=== PATIENT | female | born 1945 | race Caucasian/White ===

== ENCOUNTER 2024-04-12 14:45 | Outpatient (AMB) | payer OTHER, SELFPAY ==
[2024-04-12 14:49] VITALS: BP 108/58; PULSE 64; O2SAT 97; BMI 17.8
--- NOTE | 2024-04-12 14:49 | MHC.PC.OV ---
Vital Signs 04/12/24 14:49 Height 5 ft 3 in Weight 100 lb 8 oz BMI 17.8 BP 108/58 L Blood Pressure Location Lt brachial Position Sitting Pulse 64 Pulse Source Pulse Oximeter Pulse Oximetry (%) 97 Oxygen Delivery Method Room Air Intake Visit Reasons: est care Intake Note: Patient is here as a new patient looking to establish care. Allergies No Known Allergies Allergy (Verified 04/12/24 14:52) Medication List - Last Reconciled 04/12/24 by Augie Navarro MD No Known Home Meds Tobacco use date assessed: 04/12/24 Fall risk assessment: No Falls in past year Last assessed Fall Risk: 04/12/24 Dental Screening Dental Screen Date: 04/12/24 Did you have a dental visit in the last 12 months?: Yes Did you have a dental problem in the last 6 months where you did not have access to dental care?: No Was dental information given to patient?: Patient has dentist HPI est care HPI Details New Patient? ?? Prior PCP:?None Last office visit/CPE:? [place]oved to States from [place] & [place]. 2 yrs ago Acute issue(s):? Est care Colonoscopy about 8 years ago. Mammogram about 2 years ago. Results were normal per pt. She continues to eat a healthy diet. Pt tries to walk daily for exercise. ?? PMHx:? Hepatitis age 15. Uterine polyps SurgHx:? Uterine polpectmy/curretage. FamHx: Mom: DM Sisters: DM SocHx:? nonsmoker, EtOH 1 glass occassionally/rarely PFSH Medical History (Updated 04/12/24 @ 15:23 by Kyle Gunderson) Uterine polyp Hepatitis Cataract Family History (Updated 04/12/24 @ 15:01 by Alaina Yo CMA) Mother Diabetes Maternal Aunt Diabetes Father FH: heart attack Social History (Updated 04/12/24 @ 15:05 by Alaina Yo CMA) Household Members: Spouse Housing: Condominium Are you a primary rn wound care to a significant other at home: No Do you presently have visiting nurse or other home services: No 75 years or older and lives alone: No Alcohol intake: current Alcohol intake frequency: holidays/special occasions only Alcohol type: wine Patient Tobacco Use Status: Never used Tobacco e-Cigarette/Vaping Use: Never Used service: No Current occupational status: employed Current occupation: [employer] working Cognitive needs: No Hearing needs: No Vision needs: No Questionnaire PHQ-9 Over the last 2 weeks, how often have you been bothered by any of the following problems? 1. Little interest or pleasure in doing things: not at all 2. Feeling down, depressed, or hopeless: not at all 3. Trouble falling or staying asleep, or sleeping too much: not at all 4. Feeling tired or having little energy: not at all 5. Poor appetite or overeating: not at all 6. Feeling bad about yourself - or that you are a failure or have let yourself or your family down: not at all 7. Trouble concentrating on things, such as reading the newspaper or watching television: not at all 8. Moving or speaking so slowly that other people could have noticed. Or the opposite - being so fidgety or restless that you have been moving around a lot more than usual: not at all 9. Thoughts that you would be better off or of hurting yourself in some way: not at all Total score: 0 Depression Screening Interpretation: Negative Depression Screening Done: Yes Source: Developed by Drs. Efrem Corey, Carrie Dye, Kelvin Marino and colleagues, with an educational paco from [employer]. Thrive Questionnaire Date Thrive assessed: 04/12/24 I am a: Patient What is your living situation today?: I have a steady place to live Within the past 12 months, did the food you bought not last and you didn't have the money to get more?: Never true Within the past 12 months, did you worry whether your food would run out before you got money to buy more?: Never true Do you have trouble paying for medicines?: No Do you have trouble getting transportation to medical appointments?: No Do you have trouble paying your heating and electricity bill?: No Do you have trouble taking care of your child, family member or friend?: No Do you have trouble with day-to-day activities such as bathing, preparing meals, shopping, managing finances, etc.?: No Are you currently unemployed and looking for a job?: No Are you interested in more education?: No THRIVE Score: 0 AUDIT C Alcohol Use Questionnaire (AUDIT-C) 1. How often do you have a drink containing alcohol?: Monthly or less 2. How many drinks containing alcohol do you have on a typical day when you are drinking?: 1 or 2 3. How often do you have six or more drinks on one occasion?: Never Total Score: 1 BRENT-7 AMB Questionnaire BRENT-7 Date BRENT - 7 assessed: 04/12/24 Feeling nervous, anxious, or on edge: 0 = Not at all Not being able to stop or control worryin = Not at all Worrying too much about different things: 0 = Not at all Trouble relaxin = Not at all Being so restless that it is hard to sit still: 0 = Not at all Becoming easily annoyed or irritable: 0 = Not at all Feeling afraid as if something awful might happen: 0 = Not at all Total BRENT-7 score (0-4 normal; 5-9 mild; 10-14 moderate; 15-21 severe): 0 Source: Developed by Drs. Efrem Corey, Carrie Dye, Kelvin Marino and colleagues, with an educational paco from [employer]. BRENT-7 Assessment Billing BRENT-7 Assessment Tool: BRENT-7 Assessment 14256 Review of Systems Const Denies chills, Denies fatigue, Denies fever(s), Denies headache(s) and Denies weakness Eyes Denies change in vision ENT Denies dizziness, Denies headache(s), Denies hearing loss, Denies nasal congestion, Denies sinus pain, Denies sinus pressure and Denies sore throat Card Denies chest pain, Denies lightheadedness, Denies dyspnea and Denies other (palpitations) Resp Denies cough, Denies dyspnea and Denies wheezing GI Denies abdominal pain, Denies melena, Denies hematochezia, Denies change in bowel habits, Denies dyspepsia and Denies nausea Denies hematuria and Denies dysuria Musc Denies abnormal gait, Denies myalgias, Denies arthralgias, Denies numbness and Denies tingling Skin/Breast Denies rash, Denies unusual bruising and Denies wounds Neuro Denies abnormal gait, Denies dizziness, Denies headache(s), Denies memory loss, Denies numbness, Denies Sensory deficit (Neuro), Denies tingling and Denies weakness Psych Denies anxiety, Denies depression and Denies memory loss Endo Denies cold intolerance, Denies fatigue, Denies heat intolerance, Denies polydipsia and Denies polyuria Juvenal/Lymph Denies easy bleeding and Denies easy bruising Aller/Immun Denies wheezing Physical exam (Primary Care) Vital Signs: Last Vital Signs Pulse 64 04/12/24 14:49 BP 108/58 L 04/12/24 14:49 Pulse Ox 97 04/12/24 14:49 Oxygen Delivery Method Room Air 04/12/24 14:49 BMI result Body Mass Index 17.8 Tobacco/Smoking Status: Tobacco use Status Tobacco use date assessed 04/12/24 04/12/24 15:13 Patient Tobacco Use Status Never used Tobacco 04/12/24 15:13 e-Cigarette/Vaping Use Never Used 04/12/24 15:13 PHQ-9: PHQ-9 Score PHQ-9: Total score 0 04/12/24 15:13 Depression Screening Interpretation: Negative Thrive Assessment: Date of Thrive Assessment Date Thrive assessed 04/12/24 04/12/24 15:13 Const General: no acute distress, well developed, alert and awake Nutritional Appearance: well nourished Orientation/consciousness: patient oriented x3 HENMT Head: Yes normocephalic and Yes atraumatic Ears: hearing grossly normal bilaterally and TM's normal bilaterally General nose exam: Normal external nose present and Normal nares present Mouth: Normal oral and palatal mucosa present and moist mucous membranes Teeth and gingiva: dentition normal Throat: Yes posterior oropharynx normal Eyes General: appearance normal, both eyes and all related structures Pupils: Equal, round and reactive pupils present and Pupil accommodation reflex normal EOM: EOMs intact bilaterally Neck Neck: Yes normal visual inspection, Yes no lymphadenopathy and Yes trachea midline Thyroid: Thyroid normal Carotids: no bruits Lymphatic: no lymphadenopathy noted Chest Chest palpation & inspection: normal inspection of the chest Resp Effort & Inspection: normal respiratory effort Auscultation: clear to auscultation bilaterally Cardio Rate: regular rate Rhythm: regular rhythm Heart sounds: S1 normal heart sound present, S2 normal heart sound present, no gallops, no murmurs and no rubs Bruits: no abdominal aortic bruits and no carotid bruits GI Palpation (GI): No Abdominal aortic bruit present, Soft to palpation, nontender, No hepatosplenomegaly present and No Rebound tenderness present Auscultation: normal bowel sounds General: Yes no CVA tenderness Back/Spine/Pelvis Back: no CVA tenderness Cervical Spine: cervical ROM normal and No Cervical spine tenderness Thoracic/Lumbar Spine: thoraco-lumbar ROM normal, No pain with thoraco-lumbar ROM, No thoracic spinal tenderness and No lumbar spinal tenderness Skin Lesions: no lesions Rashes: no rashes Trauma: no lacerations or abrasions Wounds: no wounds Nails: normal Neuro General: patient oriented x3 Cranial nerves: Yes Equal, round and reactive pupils present Cognition (Neuro): normal cognition Gait exam (Neuro): Normal gait present Motor exam (neuro): 5/5 motor strength present throughout Sensory Exam: No Sensory deficit (Neuro) Deep tendon reflexes (DTR's): Right patellar reflex intensity grade: 2+ and Left patellar reflex intensity grade: 2+ Extrem General: Yes normal to inspection and No edema Psych Appearance: grossly normal Affect: normal affect Attitude: cooperative Thought process: Normal thought process present Assessment and Plan Assessment & Plan (1) History of hepatitis: Code(s): Z86.19 - Personal history of other infectious and parasitic diseases Plan: Patient?says?this?was?evaluated?by?physicians?in?[place]?and?they?found?no?evidence?of?current?hepatitis?infection Check?labs (2) Breast cancer screening by mammogram: Code(s): Z12.31 - Encounter for screening mammogram for malignant neoplasm of breast Plan: Mammogram?1-2?years?ago?and?she?would?like?to?wait?until?next?year?for?her?next?mammogram We?can?readdress?next?year (3) Screening for colon cancer: Code(s): Z12.11 - Encounter for screening for malignant neoplasm of colon Plan: Colonoscopy?about?8?years?ago She?will?be?due?to?repeat?colonoscopy?in?about?2?years; age?81?and?this?would?likely?be?her?last?colonoscopy Will?readdress?at?the?appropriate?time (4) Adult general medical exam: Code(s): Z00.00 - Encounter for general adult medical examination without abnormal findings Plan: 79-year-old?woman?presents?as?new?patient?to?establish?care?and?for?extended?exam Encouraged?ongoing?healthy?diet?with?active?lifestyle?and?plenty?of?exercise Orders: Orders Complete Blood Count Auto Diff Today Z00.00 - Encounter for general adult medical examination without abnormal findings Comprehensive [place]. Panel Fast Today Z00.00 - Encounter for general adult medical examination without abnormal findings Microalbumin, Random (w Creat) Today I10 - Essential (primary) hypertension TSH reflex Free T4 Today Z00.00 - Encounter for general adult medical examination without abnormal findings UA and rflx microscopic Today Z00.00 - Encounter for general adult medical examination without abnormal findings Vitamin B12 and Folate Today E53.8 - Deficiency of other specified B group vitamins Lipid Panel Today Z00.00 - Encounter for general adult medical examination without abnormal findings Vitamin D 25-OH Total Today E55.9 - Vitamin D deficiency, unspecified Coding Level of Care Code New Pt Level 3 (34210) New Pt Prev Care >65yr (35216) Diagnoses History of hepatitis Z86.19 Breast cancer screening by mammogram Z12.31 Screening for colon cancer Z12.11 Adult general medical exam Z00.00 Additional Codes BRENT-7 Assessment Billing - BRENT-7 Assessment Tool: BRENT-7 Assessment 58566 ([id number])
== END 2024-04-12 15:43 | disposition home or self-care (01) ==
PROVIDERS: Visit Provider Family Medicine
DX: Z00.00 Encounter for general adult medical examination without abnormal findings (principal); Z86.19 Personal history of other infectious and parasitic diseases; Z12.31 Encounter for screening mammogram for malignant neoplasm of breast; Z12.11 Encounter for screening for malignant neoplasm of colon
CPT/HCPCS: 99387

== ENCOUNTER → 2024-06-20 14:04 | Outpatient (AMB) | payer OTHER, SELFPAY ==
--- NOTE | 2024-06-20 13:54 | MHC.PC.OV ---
Intake Visit Reasons: fu labs in diag tab in clinical chart from [facility] Note: foolow up on labs . Allergies No Known Allergies Allergy (Verified 06/20/24 13:55) Tobacco use date assessed: 04/12/24 Dental Screening Dental Screen Date: 04/12/24 HPI fu labs in diag tab in clinical chart from [facility] Details Telemedicine?encounter?to?follow-up?CPE-labs. Reviewed?labs?with?patient LDL?cholesterol?is?112 Vitamin-D?level?is?18 Her?other?labs?are?within?normal?range Patient?feels?well.??No?new?complaint PFSH Medical History (Updated 06/20/24 @ 14:02 by Augie Navarro MD) Uterine polyp Hepatitis Cataract Family History (Updated 04/12/24 @ 15:01 by Alaina Yo CMA) Mother Diabetes Maternal Aunt Diabetes Father FH: heart attack Social History (Updated 04/12/24 @ 15:05 by Alaina Yo CMA) Household Members: [facility] Are you a primary prompt care rn to a significant other at home: No Do you presently have visiting nurse or other home services: No 75 years or older and lives alone: No Alcohol intake: current Alcohol intake frequency: holidays/special occasions only Alcohol type: wine Patient Tobacco Use Status: Never used Tobacco e-Cigarette/Vaping Use: Never Used service: No Current occupational status: employed 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 Efrem Corey, Carrie Dye, Kelvin Marino and colleagues, with an educational paco from [employer]. Review of Systems Const Denies chills, Denies fatigue, Denies fever(s), Denies headache(s) and Denies weakness ENT Denies dizziness and Denies headache(s) Card Denies chest pain, Denies lightheadedness, Denies dyspnea and Denies other (Palpitations) Resp Denies cough, Denies dyspnea, Denies wheezing and Denies other ( shortness of breath) Musc Denies numbness and Denies tingling Neuro Denies dizziness, Denies headache(s), Denies numbness, Denies tingling, Denies paresthesias and Denies weakness Psych Denies anxiety and Denies depression Endo Denies fatigue Aller/Immun Denies wheezing Physical exam (Primary Care) Tobacco/Smoking Status: Tobacco use Status Tobacco use date assessed 04/12/24 06/20/24 13:55 Patient Tobacco Use Status Never used Tobacco 06/20/24 13:55 e-Cigarette/Vaping Use Never Used 06/20/24 13:55 Thrive Assessment: Date of Thrive Assessment Date Thrive assessed 04/12/24 06/20/24 13:55 Telehealth Telehealth Telehealth Platform: Telephone Location of provider rendering services: practice address Location of patient: address on file Patient Identification confirmed using: Name, : Yes Telehealth method: voice only Patient verbally consented to treatment: Yes Patient verbally consented to billing insurance company: Yes Patient informed of any privacy concerns related to visit: Yes Minutes spent on Phone/Video with Pt.: 5 Assessment and Plan Assessment & Plan (1) Elevated LDL cholesterol level: Code(s): E78.00 - Pure hypercholesterolemia, unspecified Plan: Mildly?elevated?LDL?cholesterol?however?her?HDL?is?over?70; good?HDL?ratio Encouraged?a?diet?low?in?saturated?fats?and?cholesterol (2) Vitamin D deficiency: Code(s): E55.9 - Vitamin D deficiency, unspecified Plan: Vitamin-D?level?is?low?and?I?sent?a?script?for?vitamin-D?supplement?which?she?can?begin Orders: Orders Comprehensive [place]. Panel Fast Today Z00.00 - Encounter for general adult medical examination without abnormal findings Complete Blood Count Auto Diff Today Z00.00 - Encounter for general adult medical examination without abnormal findings Lipid Panel Today Z00.00 - Encounter for general adult medical examination without abnormal findings Microalbumin, Random (w Creat) Today I10 - Essential (primary) hypertension TSH reflex Free T4 Today Z00.00 - Encounter for general adult medical examination without abnormal findings UA and rflx microscopic Today Z00.00 - Encounter for general adult medical examination without abnormal findings Vitamin D 25-OH Total Today E55.9 - Vitamin D deficiency, unspecified Medications: New cholecalciferol (vitamin D3) 125 mcg PO DAILY 30 days 30 caps 3RF Coding Level of Care Code Tele Est Pt Level 2 (49942) Diagnoses Elevated LDL cholesterol level E78.00 Vitamin D deficiency E55.9
== END ==
LOC: HO.HMGFM 14:04
PROVIDERS: Visit Provider Family Medicine
DX: E78.00 Pure hypercholesterolemia, unspecified (principal); E55.9 Vitamin D deficiency, unspecified
CPT/HCPCS: 99441

== ENCOUNTER 2025-04-17 07:45 | Outpatient (REF) | payer OTHER, SELFPAY ==
[2025-04-17 11:35] LABS: Appearance Urine Clear; Color Urine Yellow; Glucose Urine UA Negative (Negative); Leukocyte Esterase Urine Trace (Negative); Nitrite Urine Negative (Negative); Specific Gravity - Urine 1.015 (1.005-1.025); UMIC TRIGGER UA YES; Urine Blood Negative (Negative); Urine Ketones Negative (Negative); Urine Protein Negative (Neg-Trace)
[2025-04-17 11:39] LABS: Bacteria Urine None Seen (None Seen); Hyaline Casts Urine 0-2 /LPF (0-2); RBC Urine 0-2 /HPF (0-2); Squamous Epithelial Cell Urine 0-2 /HPF (0-2); WBC Urine 0-5 /HPF (0-5)
[2025-04-17 11:51] LABS: MANUAL DIFF FLAG NO
[2025-04-17 12:01] LABS: Basophils Absolute Auto 0.1 X10*3/uL (0.0-0.2); Basophils Percent Auto 1.4 % (0-2); Eosinophils Absolute Auto 0.1 X10*3/uL (0.0-0.4); Hematocrit 38.4 % (37.0-47.0); Hemoglobin 12.7 g/dl (12.0-16.0); Imm Gran Abs Auto 0.02 X10*3/uL (0.00-0.03); Imm Gran Pct Auto 0.3 % (0.0-0.4); Lymphocytes Absolute Auto 1.8 X10*3/uL (1.2-4.9); Lymphocytes Percent Auto 31.1 % (20-40); Mean Corpuscular HGB Conc 33.1 g/dl (31.0-35.0); Mean Corpuscular Hemoglobin 31.2 pg (27.0-33.0); Mean Corpuscular Volume 94.3 fL (80.0-98.0); Mean Platelet Volume 10.3 fL (9.4-12.3); Monocytes Absolute Auto 0.8 X10*3/uL (0.1-1.2); Monocytes Percent Auto 13.6 % (2-11); Neutrophils Percent Auto 51.6 % (45-73); Platelet Count 274 X10*3/uL (160-400); Red Blood Count 4.07 X10*6/uL (4.20-5.50); Red Cell Distribution Width 14.4 % (11.0-16.0); White Blood Count 5.9 X10*3/uL (4.8-10.8)
[2025-04-17 12:30] LABS: Alanine Aminotransferase 17 U/L (0-31); Alkaline Phosphatase 34 U/L (39-117); Anion Gap 10 (12-20); Aspartate Amino Transferase 30 U/L (5-31); Bilirubin Total 0.6 mg/dL (0.0-1.0); Blood Urea Nitrogen 14 mg/dL (9-16); Calcium 9.5 mg/dL (8.4-10.2); Carbon Dioxide 28 mmol/L (22-29); Chloride 107 mmol/L (96-108); Cholesterol 197 mg/dL (<200); Estimated Glomerular Filt Rate > 60; Glucose Fasting 77 mg/dL (60-99); HDL Cholesterol 62 mg/dL (>40); LDL Cholesterol Calculated 121 mg/dL (<100); Potassium 4.1 mmol/L (3.3-5.1); Sodium 141 mmol/L (135-145); Total Protein 7.5 g/dL (6.5-8.0); Triglycerides 71 mg/dL (<150)
[2025-04-17 12:32] LABS: Creatinine Urine 73.78 mg/dL; Microalbumin Urine < 5.0 mg/L
[2025-04-17 12:44] LABS: TSH reflex Free T4 1.97 uIU/mL (0.32-4.0); Vitamin D 25-OH Total 82.8 ng/mL (>30)
== END 2025-04-17 07:46 | disposition home or self-care (01) ==
LOC: HO.WFDLDS 07:45
PROVIDERS: Visit Provider Family Medicine
DX: D48.5 Neoplasm of uncertain behavior of skin (principal); Z00.00 Encounter for general adult medical examination without abnormal findings; I10 Essential (primary) hypertension; E55.9 Vitamin D deficiency, unspecified
CPT/HCPCS: 36415; 80053; 80061; 81001; 82043; 82306; 82570; 84443; 85025; 96127

== ENCOUNTER 2025-04-17 11:17 | Outpatient (AMB) | payer OTHER, SELFPAY ==
--- NOTE | 2025-04-17 11:40 | MHC.PC.OV ---
Vital Signs 04/17/25 11:44 Height 5 ft 1 in Weight 101 lb 6 oz BMI 19.2 BP 110/60 Blood Pressure Location Rt brachial Position Sitting Respiration 14 Pulse 68 Pulse Source Pulse Oximeter Temp 97.1 F Temp Source Oral Pulse Oximetry (%) 98 Oxygen Delivery Method Room Air Intake Visit Reasons: Growth on Leg Intake Note: patient is being seen for growth on leg patient had a black spot on buttock right side but went away patient was worry it might be melnoma but want it to be check. Allergies No Known Allergies Allergy (Verified 04/17/25 11:42) Tobacco use date assessed: 04/17/25 Fall risk assessment: No Falls in past year Dental Screening Dental Screen Date: 04/12/24 Did you have a dental visit in the last 12 months?: Yes Did you have a dental problem in the last 6 months where you did not have access to dental care?: No Was dental information given to patient?: No HPI Growth on Leg HPI Details 80 y/o female presents today with complaints of growth on her leg. Pt also reports black spot on her buttock R side. Labs drawn 04/17/25. Reviewed labs with pt. Most labs still pending. [facility] Medical History (Updated 04/17/25 @ 12:22 by Kyle Gunderson) Uterine polyp Hepatitis Cataract Family History (Updated 04/12/24 @ 15:01 by Alaina Yo [facility]) Mother Diabetes Maternal Aunt Diabetes Father FH: heart attack Social History (Updated 04/12/24 @ 15:05 by Alaina Yo [facility]) Household Members: [facility] Are you a primary care coordinator to a significant other at home: No Do you presently have visiting nurse or other home services: No 75 years or older and lives alone: No Alcohol intake: current Alcohol intake frequency: holidays/special occasions only Alcohol type: wine Patient Tobacco Use Status: Never used Tobacco e-Cigarette/Vaping Use: Never Used service: No Current occupational status: employed 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 1. Little interest or pleasure in doing things: not at all 2. Feeling down, depressed, or hopeless: not at all 3. Trouble falling or staying asleep, or sleeping too much: not at all 4. Feeling tired or having little energy: not at all 5. Poor appetite or overeating: not at all 6. Feeling bad about yourself - or that you are a failure or have let yourself or your family down: not at all 7. Trouble concentrating on things, such as reading the newspaper or watching television: not at all 8. Moving or speaking so slowly that other people could have noticed. Or the opposite - being so fidgety or restless that you have been moving around a lot more than usual: not at all 9. Thoughts that you would be better off or of hurting yourself in some way: not at all Total score: 0 Depression Screening Interpretation: Negative Depression Screening Done: Yes [id number] - PHQ-9 Billing: Yes Source: Developed by Drs. Efrem Corey, Carrie Dye, Kelvin Marino and colleagues, with an educational paco from [employer]. Thrive Questionnaire Date Thrive assessed: 04/17/25 I am a: Patient What is your living situation today?: I have a steady place to live Within the past 12 months, did the food you bought not last and you didn't have the money to get more?: Never true Within the past 12 months, did you worry whether your food would run out before you got money to buy more?: Never true Do you have trouble paying for medicines?: No Do you have trouble getting transportation to medical appointments?: No Do you have trouble paying your heating and electricity bill?: No Do you have trouble taking care of your child, family member or friend?: No Do you have trouble with day-to-day activities such as bathing, preparing meals, shopping, managing finances, etc.?: No Are you currently unemployed and looking for a job?: No Are you interested in more education?: No Please select the resources that you would like help with: None Currently or been in a relationship where the following occur: No concerns reported THRIVE Score: 0 AUDIT C Alcohol Use Questionnaire (AUDIT-C) 1. How often do you have a drink containing alcohol?: Never Total Score: 0 BRENT-7 AMB Questionnaire BRENT-7 Date BRENT - 7 assessed: 04/17/25 Feeling nervous, anxious, or on edge: 0 = Not at all Not being able to stop or control worryin = Not at all Worrying too much about different things: 0 = Not at all Trouble relaxin = Not at all Being so restless that it is hard to sit still: 0 = Not at all Becoming easily annoyed or irritable: 0 = Not at all Feeling afraid as if something awful might happen: 0 = Not at all Total BRENT-7 score (0-4 normal; 5-9 mild; 10-14 moderate; 15-21 severe): 0 Source: Developed by Drs. Efrem Corey, Carrie Dye, Kelvin Marino and colleagues, with an educational paco from [employer]. BRENT-7 Assessment Billing BRENT-7 Assessment Tool: BRENT-7 Assessment 46433 Review of Systems Const Denies chills, Denies fatigue, Denies fever(s), Denies headache(s) and Denies weakness ENT Denies dizziness and Denies headache(s) Card Denies dyspnea Resp Denies cough, Denies dyspnea, Denies wheezing and Denies other (shortness of breath) Musc Denies numbness and Denies tingling Neuro Denies dizziness, Denies headache(s), Denies numbness, Denies tingling and Denies weakness Psych Denies anxiety and Denies depression Endo Denies fatigue Aller/Immun Denies wheezing Physical exam (Primary Care) Vital Signs: Last Vital Signs Temp 97.1 F 04/17/25 11:44 Pulse 68 04/17/25 11:44 Resp 14 04/17/25 11:44 BP 110/60 04/17/25 11:44 Pulse Ox 98 04/17/25 11:44 Oxygen Delivery Method Room Air 04/17/25 11:44 BMI result Body Mass Index 19.2 Tobacco/Smoking Status: Tobacco use Status Tobacco use date assessed 04/17/25 04/17/25 11:49 Patient Tobacco Use Status Never used Tobacco 04/17/25 11:42 e-Cigarette/Vaping Use Never Used 04/17/25 11:42 PHQ-9: PHQ-9 Score PHQ-9: Total score 0 04/17/25 11:49 Depression Screening Interpretation: Negative Thrive Assessment: Date of Thrive Assessment Date Thrive assessed 04/17/25 04/17/25 11:49 Currently or been in a relationship where the following occur: No concerns reported Const General: well developed; No acute distress Nutritional Appearance: well nourished Orientation/consciousness: patient oriented x3 [facility] Head: Yes normocephalic and Yes atraumatic Eyes General: appearance normal, both eyes and all related structures Pupils: Equal, round and reactive pupils present EOM: EOMs intact bilaterally Resp Effort & Inspection: normal respiratory effort Skin Other: 1 cm fleshy appearing growth at R lateral hip/buttock with some scale and excoriation Neuro General: patient oriented x3 and gait normal Cranial nerves: Yes Equal, round and reactive pupils present Psych Affect: normal affect Coding Level of Care Code Est Pt Level 3 (64267) Diagnoses Neoplasm of uncertain behavior of skin D48.5 Additional Codes BRENT-7 Assessment Billing - BRENT-7 Assessment Tool: BRENT-7 Assessment 56782 ([id number]) PHQ-9 - 15887 - PHQ-9 Billing: Yes ([id number]) Assessment & Plan Assessment & Plan (1) Neoplasm of uncertain behavior of skin: Code(s): D48.5 - Neoplasm of uncertain behavior of skin Category: Medical Plan: 1?cm?fleshy?appearing?growth?at?right?lateral?hip/buttock?with?mild?scale?or?excoriation. Patient?says?this?had?had?darker,?melanotic?appearance?previously?though?I?do?not?see?anything?like?that?today. Referred?to?dermatology?at?patient?request Orders: Referrals Dermatology Referral D48.5 - Neoplasm of uncertain behavior of skin
[2025-04-17 11:44] VITALS: BP 110/60; PULSE 68; RESP 14; TEMP 36.2; O2SAT 98; BMI 19.2
== END 2025-04-17 12:31 | disposition home or self-care (01) ==
LOC: HO.HMCFM 11:18
PROVIDERS: PCP Family Medicine; Visit Provider Family Medicine
DX: D48.5 Neoplasm of uncertain behavior of skin (principal)

== ENCOUNTER 2025-05-23 11:48 | Outpatient (AMB) | payer OTHER, SELFPAY ==
--- NOTE | 2025-05-23 12:06 | MHC.PC.OV ---
Vital Signs 05/23/25 12:18 Height 5 ft 1 in Weight 100 lb 4 oz BMI 18.9 BP 141/68 H Blood Pressure Location Rt brachial Position Sitting Respiration 16 Pulse 59 Pulse Source Pulse Oximeter Temp 97.4 F Temp Source Oral Pulse Oximetry (%) 99 Oxygen Delivery Method Room Air Intake Visit Reasons: Physical - Per Dr. 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: No Is last menstrual period known: No Post menopausal: No Patient : No Allergies No Known Allergies Allergy (Verified 05/23/25 12:17) Medication List - Last Reconciled 05/23/25 by Augie Navarro MD cholecalciferol (vitamin D3) 125 mcg PO DAILY 30 days Tobacco use date assessed: 05/23/25 Fall risk assessment: No Falls in past year Last assessed Fall Risk: 05/23/25 Dental Screening Dental Screen Date: 05/23/25 Did you have a dental visit in the last 12 months?: Yes Did you have a dental problem in the last 6 months where you did not have access to dental care?: No Was dental information given to patient?: Patient has dentist HPI Physical - Per Dr. Navarro HPI Details 80 y/o female presents for a CPE with f/u labs and health maintenance. Labs drawn 04/17/25. Reviewed labs with pt. RBC mildly low at 4.07. Triglycerides 71. TC 197. LDL 121. HDL 62. Vitamin D 82.8. TSH 1.97. Blood pressure today 141/68, 59p. She notes stressors today. Last mammogram about 3 years ago. Requests cologuard test. [facility], LAT[facility] Medical History Uterine polyp Hepatitis Cataract Family History Mother Diabetes Maternal Aunt Diabetes Father FH: heart attack Social History Household Members: Spouse Housing: Condominium Are you a primary career development coordinator to a significant other at home: No Do you presently have visiting nurse or other home services: No 75 years or older and lives alone: No Alcohol intake: current Alcohol intake frequency: holidays/special occasions only Alcohol type: wine Patient Tobacco Use Status: Never used Tobacco e-Cigarette/Vaping Use: Never Used Second Hand Smoke Exposure: No service: No Current occupational status: employed Current occupation: [employer] working Current occupational exposures/hazards: No Cognitive needs: No Hearing needs: No Vision needs: No Questionnaire PHQ-9 Over the last 2 weeks, how often have you been bothered by any of the following problems? 1. Little interest or pleasure in doing things: not at all 2. Feeling down, depressed, or hopeless: not at all 3. Trouble falling or staying asleep, or sleeping too much: not at all 4. Feeling tired or having little energy: not at all 5. Poor appetite or overeating: not at all 6. Feeling bad about yourself - or that you are a failure or have let yourself or your family down: not at all 7. Trouble concentrating on things, such as reading the newspaper or watching television: not at all 8. Moving or speaking so slowly that other people could have noticed. Or the opposite - being so fidgety or restless that you have been moving around a lot more than usual: not at all 9. Thoughts that you would be better off or of hurting yourself in some way: not at all Total score: 0 Depression Screening Interpretation: Negative Depression Screening Done: Yes 66793 - PHQ-9 Billing: Yes Source: Developed by Drs. Efrem Corey, Carrie Dye, Kelvin Marino and colleagues, with an educational paco from [employer]. Thrive Questionnaire Date Thrive assessed: 05/23/25 I am a: Patient What is your living situation today?: I have a steady place to live Within the past 12 months, did the food you bought not last and you didn't have the money to get more?: Never true Within the past 12 months, did you worry whether your food would run out before you got money to buy more?: Never true Do you have trouble paying for medicines?: No Do you have trouble getting transportation to medical appointments?: No Do you have trouble paying your heating and electricity bill?: No Do you have trouble taking care of your child, family member or friend?: No Do you have trouble with day-to-day activities such as bathing, preparing meals, shopping, managing finances, etc.?: No Are you currently unemployed and looking for a job?: No Are you interested in more education?: No Please select the resources that you would like help with: None Currently or been in a relationship where the following occur: No concerns reported THRIVE Score: 0 AUDIT C Alcohol Use Questionnaire (AUDIT-C) 1. How often do you have a drink containing alcohol?: Never 3. How often do you have six or more drinks on one occasion?: Never Total Score: 0 Score Reviewed/Action Taken: Yes BRENT-7 AMB Questionnaire BRENT-7 Date BRENT - 7 assessed: 05/23/25 Feeling nervous, anxious, or on edge: 0 = Not at all Not being able to stop or control worryin = Not at all Worrying too much about different things: 0 = Not at all Trouble relaxin = Not at all Being so restless that it is hard to sit still: 0 = Not at all Becoming easily annoyed or irritable: 0 = Not at all Feeling afraid as if something awful might happen: 0 = Not at all Total BRENT-7 score (0-4 normal; 5-9 mild; 10-14 moderate; 15-21 severe): 0 Source: Developed by Drs. Efrem Corey, Carrie Dye, Kelvin Marino and colleagues, with an educational paco from [employer]. BRENT-7 Assessment Billing BRENT-7 Assessment Tool: BRENT-7 Assessment 03873 Review of Systems Const Denies chills, Denies fatigue, Denies fever(s), Denies headache(s) and Denies weakness Eyes Denies change in vision ENT Denies dizziness, Denies headache(s), Denies hearing loss, Denies nasal congestion, Denies sinus pain, Denies sinus pressure and Denies sore throat Card Denies chest pain, Denies lightheadedness, Denies dyspnea and Denies other (palpitations) Resp Denies cough, Denies dyspnea and Denies wheezing GI Denies abdominal pain, Denies melena, Denies hematochezia, Denies change in bowel habits, Denies dyspepsia and Denies nausea Denies hematuria and Denies dysuria Musc Denies abnormal gait, Denies myalgias, Denies arthralgias, Denies numbness and Denies tingling Skin/Breast Denies rash, Denies unusual bruising and Denies wounds Neuro Denies abnormal gait, Denies dizziness, Denies headache(s), Denies memory loss, Denies numbness, Denies Sensory deficit (Neuro), Denies tingling and Denies weakness Psych Denies anxiety, Denies depression and Denies memory loss Endo Denies cold intolerance, Denies fatigue, Denies heat intolerance, Denies polydipsia and Denies polyuria Juvenal/Lymph Denies easy bleeding and Denies easy bruising Aller/Immun Denies wheezing Physical exam (Primary Care) Vital Signs: Last Vital Signs Temp 97.4 F 05/23/25 12:18 Pulse 59 05/23/25 12:18 Resp 16 05/23/25 12:18 BP 141/68 H 05/23/25 12:18 Pulse Ox 99 05/23/25 12:18 Oxygen Delivery Method Room Air 05/23/25 12:18 BMI result Body Mass Index 18.9 Tobacco/Smoking Status: Tobacco use Status Tobacco use date assessed 05/23/25 05/23/25 12:29 Patient Tobacco Use Status Never used Tobacco 05/23/25 12:07 e-Cigarette/Vaping Use Never Used 05/23/25 12:07 PHQ-9: PHQ-9 Score PHQ-9: Total score 0 05/23/25 13:18 Depression Screening Interpretation: Negative Thrive Assessment: Date of Thrive Assessment Date Thrive assessed 05/23/25 05/23/25 12:29 Currently or been in a relationship where the following occur: No concerns reported Const General: no acute distress, well developed, alert and awake Nutritional Appearance: well nourished Orientation/consciousness: patient oriented x3 HENMT Head: Yes normocephalic and Yes atraumatic Ears: hearing grossly normal bilaterally and TM's normal bilaterally General nose exam: Normal external nose present and Normal nares present Mouth: Normal oral and palatal mucosa present and moist mucous membranes Teeth and gingiva: dentition normal Throat: Yes posterior oropharynx normal Eyes General: appearance normal, both eyes and all related structures Pupils: Equal, round and reactive pupils present and Pupil accommodation reflex normal EOM: EOMs intact bilaterally Neck Neck: Yes normal visual inspection, Yes no lymphadenopathy and Yes trachea midline Thyroid: Thyroid normal Carotids: no bruits Lymphatic: no lymphadenopathy noted Chest Chest palpation & inspection: normal inspection of the chest Resp Effort & Inspection: normal respiratory effort Auscultation: clear to auscultation bilaterally Cardio Rate: regular rate Rhythm: regular rhythm Heart sounds: S1 normal heart sound present, S2 normal heart sound present, no gallops, no murmurs and no rubs Bruits: no abdominal aortic bruits and no carotid bruits GI Palpation (GI): No Abdominal aortic bruit present, Soft to palpation, nontender, No hepatosplenomegaly present and No Rebound tenderness present Auscultation: normal bowel sounds General: Yes no CVA tenderness Back/Spine/Pelvis Back: no CVA tenderness Cervical Spine: cervical ROM normal and No Cervical spine tenderness Thoracic/Lumbar Spine: thoraco-lumbar ROM normal, No pain with thoraco-lumbar ROM, No thoracic spinal tenderness and No lumbar spinal tenderness Skin Lesions: no lesions Rashes: no rashes Trauma: no lacerations or abrasions Wounds: no wounds Nails: normal Neuro General: patient oriented x3 Cranial nerves: Yes Equal, round and reactive pupils present Cognition (Neuro): normal cognition Gait exam (Neuro): Normal gait present Motor exam (neuro): 5/5 motor strength present throughout Sensory Exam: No Sensory deficit (Neuro) Deep tendon reflexes (DTR's): Right patellar reflex intensity grade: 2+ and Left patellar reflex intensity grade: 2+ Extrem General: Yes normal to inspection and No edema Psych Appearance: grossly normal Affect: normal affect Attitude: cooperative Thought process: Normal thought process present Coding Level of Care Code Est Pt Level 3 (20166) Est Pt Prev Care >65y(75381) Diagnoses Adult general medical exam Z00.00 Elevated LDL cholesterol level E78.00 Breast cancer screening by mammogram Z12.31 Screening for colon cancer Z12.11 Screening for osteoporosis Z13.820 Vitamin D deficiency E55.9 Elevated blood pressure reading R03.0 Additional Codes BRENT-7 Assessment Billing - BRENT-7 Assessment Tool: BRENT-7 Assessment 59189 ([id number]) PHQ-9 - 04491 - PHQ-9 Billing: Yes ([id number]) Assessment & Plan Assessment & Plan (1) Adult general medical exam: Code(s): Z00.00 - Encounter for general adult medical examination without abnormal findings Category: Medical Plan: 80-year-old female presents for complete physical exam Encouraged healthy diet with active lifestyle and plenty of exercise (2) Elevated LDL cholesterol level: Code(s): E78.00 - Pure hypercholesterolemia, unspecified Category: Medical Plan: LDL cholesterol is elevated. HDL ratios are good Encouraged a diet lower in saturated fats and cholesterol. We can follow-up on this again in a few months (3) Breast cancer screening by mammogram: Code(s): Z12.31 - Encounter for screening mammogram for malignant neoplasm of breast Category: Medical Plan: Last mammogram was about 3 years ago Due for repeat mammogram-ordered (4) Screening for colon cancer: Code(s): Z12.11 - Encounter for screening for malignant neoplasm of colon Category: Medical Plan: Patient says her last colonoscopy was about 10 years ago. She requests Cologuard test. Ordered (5) Screening for osteoporosis: Code(s): Z13.820 - Encounter for screening for osteoporosis Category: Medical Plan: Last bone density test was over 2 years ago. Due for repeat screening Ordered (6) Vitamin D deficiency: Code(s): E55.9 - Vitamin D deficiency, unspecified Category: Medical Plan: Patient has a history of vitamin-D deficiency and is taking 5000 IU daily. Vitamin-D level is higher than needed Will have her take this medication 6 days a week rather than 7, through the summer months. Will recheck in fall (7) Elevated blood pressure reading: Code(s): R03.0 - Elevated blood-pressure reading, without diagnosis of hypertension Category: Medical Plan: Elevated blood pressure today and she notes that she had some stressful situations today Blood pressures have typically been fine Will recheck blood pressure at her next visit Orders: Orders Lipid Panel Today E78.00 - Pure hypercholesterolemia, unspecified, Z00.00 - Encounter for general adult medical examination without abnormal findings Comprehensive [place]. Panel Fast Today E78.00 - Pure hypercholesterolemia, unspecified, Z00.00 - Encounter for general adult medical examination without abnormal findings XR DEXA axial skeleton Today M81.0 - Age-related osteoporosis without current pathological fracture, Z13.820 - Encounter for screening for osteoporosis MM tomosynthesis screening BI Today Z12.31 - Encounter for screening mammogram for malignant neoplasm of breast Vitamin D 25-OH Total Today E55.9 - Vitamin D deficiency, unspecified Referrals Cologuard Test Z12.11 - Encounter for screening for malignant neoplasm of colon, Z12.12 - Encounter for screening for malignant neoplasm of rectum
[2025-05-23 12:18] VITALS: BP 141/68; PULSE 59; RESP 16; TEMP 36.3; O2SAT 99; BMI 18.9
== END 2025-05-23 13:24 | disposition home or self-care (01) ==
LOC: HO.HMCFM 11:48
PROVIDERS: PCP Family Medicine; Visit Provider Family Medicine
DX: Z00.00 Encounter for general adult medical examination without abnormal findings (principal); E78.00 Pure hypercholesterolemia, unspecified; E55.9 Vitamin D deficiency, unspecified; R03.0 Elevated blood-pressure reading, without diagnosis of hypertension; Z12.31 Encounter for screening mammogram for malignant neoplasm of breast; Z12.11 Encounter for screening for malignant neoplasm of colon; Z13.820 Encounter for screening for osteoporosis

== ENCOUNTER → 2025-05-23 11:48 | Outpatient (BNVA) | payer OTHER, SELFPAY | PROVIDERS: PCP Family Medicine; Visit Provider Family Medicine | DX: Z00.00 Encounter for general adult medical examination without abnormal findings (principal); E78.00 Pure hypercholesterolemia, unspecified; E55.9 Vitamin D deficiency, unspecified; R03.0 Elevated blood-pressure reading, without diagnosis of hypertension; Z13.31 Encounter for screening for depression; Z13.30 Encounter for screening examination for mental health and behavioral disorders, unspecified | CPT/HCPCS: 96127 ==

== ENCOUNTER 2025-07-25 11:01 | Outpatient (REF) | payer OTHER, SELFPAY ==
--- NOTE | ~2025-07-25 | MM_ITS ---
EXAMINATION: MM SCREENING DIGITAL BREAST TOMOSYNTHESIS, BILATERAL CLINICAL INFORMATION: Screening. Asymptomatic. COMPARISON: Mammography: Baseline. TECHNIQUE: Digital breast mammography with tomosynthesis is performed in both the craniocaudal and mediolateral oblique views along with computer-aided detection (CAD). FINDINGS: The breasts are heterogeneously dense, which may obscure small masses (ACR BI-RADS breast composition Category c). There are no significant masses, abnormal calcifications, or other abnormalities. MM/MM tomosynthesis screening BI IMPRESSION: No mammographic evidence of malignancy. ASSESSMENT: BI-RADS BI-RADS 1 - Negative RECOMMENDATION: Routine annual mammography screening. 1 year F/U This examination should not preclude the clinical evaluation of a suspicious palpable abnormality. This patient's information was entered into a reminder system with a target due date for their next mammogram. Electronically signed by: Indu Arrington DO 07/30/2025 02:00 PM EDWIGE
--- NOTE | ~2025-07-25 | MM_ITS ---
EXAMINATION: DXA BONE DENSITY AXIAL HISTORY: M81.0 - Age-related osteoporosis without current pathological fracture TECHNIQUE: [employer] Dual energy absorptiometry (DEXA) of the lumbar spine, total left hip, and femoral neck was performed. COMPARISON: There are no prior studies for comparison. FINDINGS: The bone mineral density of the lumbar spine is 0.900 g/cm2, corresponding to a T-score of -2.2, and a Z-score of 0.3. This is indicative of osteopenia. The bone mineral density of the left total hip is 0.590 g/cm2, corresponding to a T-score of -3.3, and a Z-score of -0.9. This is indicative of osteoporosis. The bone mineral density of the left femoral neck is 0.586 g/cm2, corresponding to a T-score of -3.3, and a Z-score of -0.9. This is indicative of osteoporosis. MM/XR DEXA axial skeleton IMPRESSION: Based on bone mineral density, and according to World Health Organization (WHO) criteria, the diagnosis is consistent with osteoporosis. Statistically, 68% of repeat scans fall within 1 SD (+/- 0.010 g/cm2 for AP spine L1-L4) and 1 SD (+/- 0.012 g/cm2 for femur total) FRAX is a trademark of the [employer]'s [employer] Disease, a World Health Organization (WHO) Collaborating Center. Electronically signed by: Efrem Talavera MD 07/25/2025 12:48 PM EDT
== END 2025-07-25 11:02 | disposition home or self-care (01) ==
LOC: HO.MAMMO 11:01
PROVIDERS: PCP Family Medicine; Visit Provider Family Medicine
DX: Z12.31 Encounter for screening mammogram for malignant neoplasm of breast (principal); M81.0 Age-related osteoporosis without current pathological fracture
CPT/HCPCS: 77063; 77067; 77080

== ENCOUNTER → 2025-07-25 11:30 | Outpatient (BNV) | payer OTHER, SELFPAY | PROVIDERS: PCP Family Medicine; Visit Provider Radiology Diagnostic Radiology | DX: E28.39 Other primary ovarian failure (principal) | CPT/HCPCS: 77080 ==

== ENCOUNTER 2025-10-09 09:09 | Outpatient (REF) | payer OTHER, SELFPAY ==
[2025-10-09 11:34] LABS: Appearance Urine Clear; Glucose Urine UA Negative (Negative); PH 6.0 (5.0-9.0); Specific Gravity - Urine 1.015 (1.005-1.025); UMIC TRIGGER UA YES
[2025-10-09 12:29] LABS: Alanine Aminotransferase 17 U/L (0-31); Albumin Level 4.2 g/dL (3.5-5.0); Alkaline Phosphatase 41 U/L (39-117); Anion Gap 10 (12-20); Aspartate Amino Transferase 28 U/L (5-31); Blood Urea Nitrogen 19 mg/dL (9-16); Calcium 9.4 mg/dL (8.4-10.2); Carbon Dioxide 29 mmol/L (22-29); Chloride 108 mmol/L (96-108); Cholesterol 203 mg/dL (<200); Estimated Glomerular Filt Rate > 60; HDL Cholesterol 68 mg/dL (>40); Potassium 4.1 mmol/L (3.3-5.1); Sodium 143 mmol/L (135-145); Total Protein 7.3 g/dL (6.5-8.0); Triglycerides 56 mg/dL (<150)
== END 2025-10-09 09:10 | disposition home or self-care (01) ==
LOC: HO.WFDLDS 09:09
PROVIDERS: Visit Provider Family Medicine
DX: Z00.00 Encounter for general adult medical examination without abnormal findings (principal); E78.00 Pure hypercholesterolemia, unspecified; E55.9 Vitamin D deficiency, unspecified
CPT/HCPCS: 36415; 80053; 80061; 81001; 82306

== ENCOUNTER 2025-11-05 15:20 | Outpatient (AMB) | payer OTHER, SELFPAY ==
--- NOTE | 2025-11-05 15:33 | A.OFFPC_ITS ---
Vital Signs 11/05/25 15:38 Height 5 ft 1 in Weight 102 lb 8 oz BMI 19.4 BP 134/60 Blood Pressure Location Lt brachial Position Sitting Respiration 16 Pulse 74 Pulse Source Pulse Oximeter Temp 97.4 F Temp Source Oral Pulse Oximetry (%) 99 Oxygen Delivery Method Room Air Intake Visit Reasons: lab review Intake Note: patient here for labs review Sound Equipment Mechanic Required: No Is last menstrual period known: No Post menopausal: No Patient : No Allergies No Known Allergies Allergy (Verified 11/05/25 15:37) Medication List - Last Reconciled 11/05/25 by Augie Navarro MD cholecalciferol (vitamin D3) 125 mcg PO DAILY 30 days Tobacco use date assessed: 11/05/25 Fall risk assessment: No Falls in past year Last assessed Fall Risk: 11/05/25 Dental Screening Dental Screen Date: 11/05/25 Did you have a dental visit in the last 12 months?: Yes Did you have a dental problem in the last 6 months where you did not have access to dental care?: No Was dental information given to patient?: Patient has dentist HPI lab review HPI Details 80 y/o female presents to f/u labs. Labs drawn 10/09/25. Reviewed labs with pt. Triglycerides 56. TC 203. LDL 124. HDL 68. Vitamin D 51.1. Bone density test 07/25/25 showed diagnosis consistent with osteoporosis. HPI Comments History of Present Illness Details Documentation assistance for Augie Navarro MD, was provided by Kyle Gunderson,? [employer] on 11/05/2025 at 4:20 PM EST. I, Dr. Navarro, have read, observed, and verified documentation. ?? PFSH Medical History Uterine polyp Hepatitis Cataract Family History Mother Diabetes Maternal Aunt Diabetes Father FH: heart attack Social History Household Members: Spouse Housing: Condominium Are you a primary intensive care ambulance paramedic to a significant other at home: No Do you presently have visiting nurse or other home services: No 75 years or older and lives alone: No Alcohol intake: current Alcohol intake frequency: holidays/special occasions only Alcohol type: wine Patient Tobacco Use Status: Never used Tobacco e-Cigarette/Vaping Use: Never Used Second Hand Smoke Exposure: No service: No Current occupational status: employed 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 Current occupational exposures/hazards: No Cognitive needs: No Hearing needs: No Vision needs: No Questionnaire Thrive Questionnaire Date Thrive assessed: 04/17/25 I am a: Patient What is your living situation today?: I have a steady place to live Within the past 12 months, did the food you bought not last and you didn't have the money to get more?: Never true Within the past 12 months, did you worry whether your food would run out before you got money to buy more?: Never true Do you have trouble paying for medicines?: No Do you have trouble getting transportation to medical appointments?: No Do you have trouble paying your heating and electricity bill?: No Do you have trouble taking care of your child, family member or friend?: No Do you have trouble with day-to-day activities such as bathing, preparing meals, shopping, managing finances, etc.?: No Are you currently unemployed and looking for a job?: No Are you interested in more education?: No Currently or been in a relationship where the following occur: No concerns reported THRIVE Score: 0 BRENT-7 AMB Questionnaire BRENT-7 Date BRENT - 7 assessed: 05/23/25 Source: Developed by Drs. Efrem Corey, Carrie Dye, Kelvin Marino and colleagues, with an educational paco from [employer]. Review of Systems Const Denies chills, Denies fatigue, Denies fever(s), Denies headache(s) and Denies weakness ENT Denies dizziness and Denies headache(s) Card Denies dyspnea Resp Denies cough, Denies dyspnea, Denies wheezing and Denies other (shortness of breath) Musc Denies numbness and Denies tingling Neuro Denies dizziness, Denies headache(s), Denies numbness, Denies tingling and Denies weakness Psych Denies anxiety and Denies depression Endo Denies fatigue Aller/Immun Denies wheezing Physical exam (Primary Care) Vital Signs: Last Vital Signs Temp 97.4 F 11/05/25 15:38 Pulse 74 11/05/25 15:38 Resp 16 11/05/25 15:38 BP 134/60 12/22/25 15:38 Pulse Ox 99 11/05/25 15:38 Oxygen Delivery Method Room Air 11/05/25 15:38 BMI result Body Mass Index 19.4 Tobacco/Smoking Status: Tobacco use Status Tobacco use date assessed 11/05/25 11/05/25 15:41 Patient Tobacco Use Status Never used Tobacco 11/05/25 15:37 e-Cigarette/Vaping Use Never Used 11/05/25 15:37 Thrive Assessment: Date of Thrive Assessment Date Thrive assessed 04/17/25 11/05/25 15:37 Currently or been in a relationship where the following occur: No concerns reported Const General: well developed; No acute distress Nutritional Appearance: well nourished Orientation/consciousness: patient oriented x3 HENMT Head: Yes normocephalic and Yes atraumatic Eyes General: appearance normal, both eyes and all related structures Pupils: Equal, round and reactive pupils present EOM: EOMs intact bilaterally Resp Effort & Inspection: normal respiratory effort Auscultation: clear to auscultation bilaterally Cardio Rate: regular rate Rhythm: regular rhythm Heart sounds: S1 normal heart sound present, S2 normal heart sound present, no gallops, no murmurs and no rubs Neuro General: patient oriented x3 and gait normal Cranial nerves: Yes Equal, round and reactive pupils present Psych Affect: normal affect Coding Level of Care Code Est Pt Level 4 (11049) Diagnoses Elevated LDL cholesterol level E78.00 Osteoporosis M81.0 Vitamin D deficiency E55.9 Assessment & Plan Assessment & Plan (1) Elevated LDL cholesterol level: Code(s): E78.00 - Pure hypercholesterolemia, unspecified Category: Medical Plan: LDL cholesterol is still elevated. Patient is adamant that she does not want to use medication for this. Continue healthy diet low in saturated fats and cholesterol Continue exercise (2) Osteoporosis: Code(s): M81.0 - Age-related osteoporosis without current pathological fracture Category: Medical Plan: Bone density test shows osteoporosis Patient declines bisphosphonate therapy She is eating foods high in calcium and has a vitamin-D supplement She has begun weight-bearing exercise and I encouraged this Will recheck bone density test in 2 years (3) Vitamin D deficiency: Code(s): E55.9 - Vitamin D deficiency, unspecified Category: Medical Plan: [place] [address] IU 2 to 3 times a week She would like to decrease this to 1000 IU daily Will recheck vitamin-D level with next blood draw Plan Blood pressure was in hypertensive range at last visit. Now mildly elevated in prehypertensive range. Encouraged exercise and watch salt and sodium in diet Will continue to monitor Orders: Orders Vitamin D 25-OH Total Today E55.9 - Vitamin D deficiency, unspecified Comprehensive [place]. Panel Fast Today E78.00 - Pure hypercholesterolemia, unspecified, Z00.00 - Encounter for general adult medical examination without abnormal findings Lipid Panel Today E78.00 - Pure hypercholesterolemia, unspecified, Z00.00 - Encounter for general adult medical examination without abnormal findings Medications: New cholecalciferol (vitamin D3) 25 mcg PO DAILY 90 caps 3RF 90 days Discontinued cholecalciferol (vitamin D3) Discontinued Reason: Change Referral Type 125 mcg PO DAILY 30 days 30 caps 3RF
[2025-11-05 15:38] VITALS: BP 134/60; PULSE 74; RESP 16; TEMP 36.3; O2SAT 99; BMI 19.4
== END 2025-11-05 16:33 | disposition home or self-care (01) ==
LOC: HO.HMCFM 15:22
PROVIDERS: PCP Family Medicine; Visit Provider Family Medicine
DX: E78.00 Pure hypercholesterolemia, unspecified (principal); M81.0 Age-related osteoporosis without current pathological fracture; E55.9 Vitamin D deficiency, unspecified